=== PATIENT | female | born 1945 | race African-American/Black ===

== ENCOUNTER 2016-12-27 05:10 | Observation (INO) | payer OTHER ==
[2016-12-27] VITALS (8 sets, daily range): BP systolic 143–189; BP diastolic 70–90; PULSE 65–80; RESP 16–18; TEMP 97.3–97.8; O2SAT 95–100
[~2016-12-27] VITALS: Ht 154.9 cm; Wt 60.0 kg
[~2016-12-27 05:10] MED LIST: COZA50TA PO; HYDR-2768 PO; METF-324 PO; PYRI200T4 PO; ROSU40 PO; SITA100 PO; SULF1TAB47 PO
[2016-12-27] MEDS ORDERED: LANTUS2P SQ (05:32)
[2016-12-27] MEDS ORDERED: ATOR1TAB18 PO (05:32)
[2016-12-27] MEDS ORDERED: LOSA100T PO (05:32)
[2016-12-27] MEDS ORDERED: ZETI10TA5 PO (05:32)
[2016-12-27] MEDS ORDERED: METF1000 PO (05:32)
[2016-12-27] MEDS ORDERED: PROT40TA PO (05:32)
--- NOTE | 2016-12-27 05:54 | PD ---
HPI Chief Complaint: Chest Pain Time Seen by Provider: 05:32 Travel History International Travel<30 days: No Contact w/Intl Traveler<30days: No Traveled to known affect area: No History of Present Illness HPI The patient is a 71-year-old [place] female who presents emergency department for chest pain. The patient states she developed chest pain under left breast that radiates to the back yesterday while mowing her lawn. The patient's pain persisted while she was mowing the lawn, and improved after she sat down, after she stopped mowing. However, the pain returned this morning. The pain is located under the left breast, radiates to the back, slightly worse with inspiration, but is present at rest. She does complain of mild nausea and shortness of breath with her chest pain, but denies any vomiting. The patient does have a history of hypertension, hyperlipidemia, diabetes, and tobacco use. The patient quit smoking approximately one year ago. The patient thinks she had an outpatient stress test performed by Dr. Ryland Brown 2-3 years ago on an outpatient basis. The patient denies any known history of coronary artery disease. The patient's primary physician is Dr. Cook. PFSH Past Medical History Cardiovascular Problems: Yes (HTN) High Cholesterol: Yes Diabetes: Yes Patient Takes Glucophage: Yes (METFORMIN 12/26/16 1600 2000MG) Hypertension: Yes Pancreatitis: Yes (FAILURE) Tetanus Vaccination: > 5 Years Influenza Vaccination: Yes Past Surgical History Cholecystectomy: Yes Hysterectomy: Yes Social History Alcohol Use: Yes (OCC) Tobacco Use: No Substance Use: No Allergies-Medications (Allergen,Severity, Reaction): Coded Allergies: Tylenol/Codeine (Verified Allergy, Severe, Nausea/Vomiting, 12/27/16) Reported Meds & Prescriptions Reported Meds & Active Scripts Active Reported Lantus Inj (Insulin Glargine) 1,000 Unit/10 Ml Vial 30 Units SQ AC BREAKFAST Metformin (Metformin HCl) 1,000 Mg Tab 1,000 Mg PO BIDPC With meals Atorvastatin (Atorvastatin Calcium) 80 Mg Tab 80 Mg PO HS Protonix (Pantoprazole Sodium) 40 Mg Tab 40 Mg PO DAILY Zetia (Ezetimibe) 10 Mg Tab 10 Mg PO DAILY Losartan (Losartan Potassium) 100 Mg Tab 100 Mg PO DAILY Review of Systems Except as stated in HPI: all other systems reviewed are Neg HENT: No: Lightheadedness Cardiovascular: Positive: Chest Pain or Discomfort, Diaphoresis, Dyspnea on exertion Respiratory: Positive: Shortness of Breath Gastrointestinal: Positive: Nausea, No: Vomiting Musculoskeletal: No: Weakness, Edema Physical Exam Narrative GENERAL: Awake, alert, 71-year-old female who appears her stated age and is in no acute respiratory distress. SKIN: Warm and dry. HEAD: Atraumatic. Normocephalic. EYES: No injection or drainage. ENT: No nasal bleeding or discharge. Mucous membranes pink and moist. NECK: Trachea midline. No JVD. CARDIOVASCULAR: Regular rate and rhythm. No murmur appreciated. RESPIRATORY: No accessory muscle use. Clear to auscultation. Breath sounds equal bilaterally. GASTROINTESTINAL: Abdomen soft, non-tender, nondistended. No epigastric tenderness. No rebound tenderness. MUSCULOSKELETAL: No obvious deformities. No clubbing. No cyanosis. No edema. Calves are soft bilaterally. NEUROLOGICAL: Awake and alert. No obvious cranial nerve deficits. Motor grossly within normal limits. Normal speech. PSYCHIATRIC: Appropriate mood and affect; insight and judgment normal. Data Data Last Documented VS Vital Signs Date Time Temp Pulse Resp B/P Pulse Ox O2 Delivery O2 Flow Rate FiO2 12/27/16 06:22 16 12/27/16 06:01 68 181/83 100 Nasal Cannula 2 12/27/16 05:11 97.8 Orders Electrocardiogram (12/27/16 05:46) Ckmb (Isoenzyme) Profile (12/27/16 05:46) Complete Blood Count With Diff (12/27/16 05:46) Comprehensive Metabolic Panel (12/27/16 05:46) Magnesium (Mg) (12/27/16 05:46) Prothrombin Time / Inr (Pt) (12/27/16 05:46) Act Partial Throm Time (Ptt) (12/27/16 05:46) Troponin I (12/27/16 05:46) Chest, Single Ap (12/27/16 05:46) Ecg Monitoring (12/27/16 05:46) Bilateral Bp Monitoring (12/27/16 05:46) Iv Access Insert/Monitor (12/27/16 05:46) Oximetry (12/27/16 05:46) Oxygen Administration (12/27/16 05:46) Aspirin Chew (Aspirin Chew) (12/27/16 06:00) Morphine Inj (Morphine Inj) (12/27/16 06:00) Nitroglycerin 2% Oint (Nitroglycerin 2% (12/27/16 06:00) Sodium Chloride 0.9% Flush (Ns Flush) (12/27/16 06:00) Ondansetron Inj (Zofran Inj) (12/27/16 06:00) CKMB (12/27/16 05:50) CKMB% (12/27/16 05:50) Admit Order (Ed Use Only) (12/27/16 06:48) Activity Bed Rest With Brp (12/27/16 06:50) Vital Signs (Adult) Q4H (12/27/16 06:50) Cardiac Rhythm .As Directed (12/27/16 06:50) ^ Notify Dr: Other .PRN (12/27/16 06:50) ^ Notify Dr. Parameters (12/27/16 06:50) Resp Oxygen Nasal Cannula (12/27/16 ) Diet Npo (12/27/16 Breakfast) Ckmb (Isoenzyme) Profile (12/27/16 08:50) Ckmb (Isoenzyme) Profile (12/27/16 11:50) Troponin I (12/27/16 08:50) Troponin I (12/27/16 11:50) Electrocardiogram (12/27/16 08:50) Electrocardiogram (12/27/16 11:50) ^ Obtain (12/27/16 06:50) Sodium Chloride 0.9% Flush (Ns Flush) (12/27/16 07:00) Sodium Chloride 0.9% Flush (Ns Flush) (12/27/16 09:00) Acetaminophen (Tylenol) (12/27/16 07:00) Acetamin-Hydrocod 325-7.5 Mg (Joseph 7.5 (12/27/16 07:00) Morphine Inj (Morphine Inj) (12/27/16 07:00) Ondansetron Inj (Zofran Inj) (12/27/16 07:00) Nitroglycerin Sl (Nitrostat Sl) (12/27/16 07:00) Aspirin (Aspirin) (12/27/16 09:00) Applications Administrator / Telemetry DALILA.Q8H (12/27/16 06:50) Vte Prophylaxis Not Indicated (12/27/16 06:50) Labs Laboratory Tests Test 12/27/16 05:50 White Blood Count 6.2 TH/MM3 Red Blood Count 4.60 MIL/MM3 Hemoglobin 12.8 GM/DL Hematocrit 39.4 % Mean Corpuscular Volume 85.6 FL Mean Corpuscular Hemoglobin 27.8 PG Mean Corpuscular Hemoglobin 32.5 % Concent Red Cell Distribution Width 15.7 % Platelet Count 217 TH/MM3 Mean Platelet Volume 9.2 FL Neutrophils (%) (Auto) 43.7 % Lymphocytes (%) (Auto) 46.8 % Monocytes (%) (Auto) 6.9 % Eosinophils (%) (Auto) 1.6 % Basophils (%) (Auto) 1.0 % Neutrophils # (Auto) 2.7 TH/MM3 Lymphocytes # (Auto) 2.9 TH/MM3 Monocytes # (Auto) 0.4 TH/MM3 Eosinophils # (Auto) 0.1 TH/MM3 Basophils # (Auto) 0.1 TH/MM3 CBC Comment DIFF FINAL Differential Comment Prothrombin Time 10.0 SEC Prothromb Time International 0.9 RATIO Ratio Activated Partial 28.2 SEC Thromboplast Time Sodium Level 141 MEQ/L Potassium Level 3.5 MEQ/L Chloride Level 106 MEQ/L Carbon Dioxide Level 26.6 MEQ/L Anion Gap 8 MEQ/L Blood Urea Nitrogen 15 MG/DL Creatinine 0.99 MG/DL Estimat Glomerular Filtration 67 ML/MIN Rate Random Glucose 164 MG/DL Calcium Level 9.2 MG/DL Magnesium Level 1.7 MG/DL Total Bilirubin 0.6 MG/DL Aspartate Amino Transf 16 U/L (AST/SGOT) Alanine Aminotransferase 19 U/L (ALT/SGPT) Alkaline Phosphatase 102 U/L Total Creatine Kinase 186 U/L Troponin I LESS THAN 0.02 NG/ML Total Protein 8.2 GM/DL Albumin 3.9 GM/DL [facility] Medical Decision Making Medical Screen Exam Complete: Yes Emergency Medical Condition: Yes Medical Record Reviewed: Yes Interpretation(s) EKG reveals normal sinus rhythm with a rate of 70. Q wave noted in lead 3. [address] elevation noted in V2, not noted in V1 or V3. Chest x-ray reveals no acute disease Last Impressions Chest X-Ray 12/27/16 0546 Signed Impressions: Service Date/Time: Tuesday, December 27, 2016 05:58 - CONCLUSION: No acute disease. Carlos Demarco MD Laboratory Tests Test 12/27/16 05:50 White Blood Count 6.2 TH/MM3 Red Blood Count 4.60 MIL/MM3 Hemoglobin 12.8 GM/DL Hematocrit 39.4 % Mean Corpuscular Volume 85.6 FL Mean Corpuscular Hemoglobin 27.8 PG Mean Corpuscular Hemoglobin 32.5 % Concent Red Cell Distribution Width 15.7 % Platelet Count 217 TH/MM3 Mean Platelet Volume 9.2 FL Neutrophils (%) (Auto) 43.7 % Lymphocytes (%) (Auto) 46.8 % Monocytes (%) (Auto) 6.9 % Eosinophils (%) (Auto) 1.6 % Basophils (%) (Auto) 1.0 % Neutrophils # (Auto) 2.7 TH/MM3 Lymphocytes # (Auto) 2.9 TH/MM3 Monocytes # (Auto) 0.4 TH/MM3 Eosinophils # (Auto) 0.1 TH/MM3 Basophils # (Auto) 0.1 TH/MM3 CBC Comment DIFF FINAL Differential Comment Prothrombin Time 10.0 SEC Prothromb Time International 0.9 RATIO Ratio Activated Partial 28.2 SEC Thromboplast Time Sodium Level 141 MEQ/L Potassium Level 3.5 MEQ/L Chloride Level 106 MEQ/L Carbon Dioxide Level 26.6 MEQ/L Anion Gap 8 MEQ/L Blood Urea Nitrogen 15 MG/DL Creatinine 0.99 MG/DL Estimat Glomerular Filtration 67 ML/MIN Rate Random Glucose 164 MG/DL Calcium Level 9.2 MG/DL Magnesium Level 1.7 MG/DL Total Bilirubin 0.6 MG/DL Aspartate Amino Transf 16 U/L (AST/SGOT) Alanine Aminotransferase 19 U/L (ALT/SGPT) Alkaline Phosphatase 102 U/L Total Creatine Kinase 186 U/L Troponin I LESS THAN 0.02 NG/ML Total Protein 8.2 GM/DL Albumin 3.9 GM/DL Differential Diagnosis Differential diagnosis includes acute coronary syndrome, STEMI, pericarditis, myocarditis, pericardial effusion, pleural effusion, pulmonary embolism, costochondritis, pancreatitis. Narrative Course IV was established, labs are drawn and sent, and the patient was placed on cardiac telemetry monitoring and continuous pulse oximetry monitoring. EKG was ordered and interpreted. The patient was administered 2 baby aspirin, nitroglycerin paste, morphine, and Zofran. Chest x-ray was obtained. Chest x- ray was negative. The patient's initial troponin is negative. The patient will be 23 hour observation to the chest pain Center for serial cardiac enzymes and further evaluation by cardiology. The patient's blood pressure was elevated at 6:53 AM, 177/86, therefore, she was given her morning dose of losartan 100 mg orally. Physician Communication Physician Communication The patient will be 23 hour observation to the chest pain center for serial cardiac enzymes and further evaluation by cardiology. Diagnosis Primary Impression: Chest pain Qualified Code: R07.9 - Chest pain, unspecified type Admitting Information Admitting Physician Requests: Observation Condition: Stable Dequan Martinez MD Dec 27, 2016 05:54
[2016-12-27] MEDS ORDERED: ASPIRIN 81 MG CHEW TAB PO ONE (06:00)
[2016-12-27] MEDS ORDERED: MORPHINE SULFATE 4 MG/ML INJ IV PUSH ONE (06:00)
[2016-12-27] MEDS ORDERED: ONDANSETRON HCL 4 MG/2 ML VIAL IV PUSH ONE (06:00)
[2016-12-27] MEDS ORDERED: NITROGLYCERIN 2% OINT 1 GM PACKET TOP ONE (06:00)
[2016-12-27] MEDS ORDERED: SODIUM CHLORIDE 0.9% FLUSH 5 ML FLUSH IVF PRN ×2 (06:00→07:00)
[2016-12-27 06:13] LABS: AUTOMATED NEUTROPHIL # 2.7 TH/MM3 (1.8-7.7); BASOPHIL # 0.1 TH/MM3 (0-0.2); EOSINOPHIL # 0.1 TH/MM3 (0-0.4); EOSINOPHIL % 1.6 % (0.0-4.0); HEMATOCRIT 39.4 % (35.0-46.0); HEMO FLAGS DIFF FINAL; LYMPH % 46.8 % (9.0-44.0); LYMPHOCYTE # 2.9 TH/MM3 (1.0-4.8); MEAN CELL VOLUME 85.6 FL (80.0-100.0); MEAN CORPUSCULAR HEMOGLOBIN 27.8 PG (27.0-34.0); MEAN CORPUSCULAR HGB CONC 32.5 % (32.0-36.0); MONO % 6.9 % (0.0-8.0); NEUT % 43.7 % (16.0-70.0); PLATELET COUNT 217 TH/MM3 (150-450); RED CELL DISTRIBUTION WIDTH 15.7 % (11.6-17.2); WHITE BLOOD COUNT 6.2 TH/MM3 (4.0-11.0)
--- NOTE | 2016-12-27 06:33 | RADRPT ---
EXAM DATE/TIME: 12/27/2016 05:58 [facility] COMPARISON: No previous studies available for comparison. INDICATIONS : Chest pain. MEDICAL HISTORY : Diabetes mellitus type II. Hypercholesterolemia. Hypertension. SURGICAL HISTORY : None. ENCOUNTER: Initial ACUITY: 1 day PAIN SCORE: 6/10 LOCATION: Left chest FINDINGS: A single view of the chest demonstrates the lungs to be symmetrically aerated without evidence of mas s, infiltrate or effusion. The cardiomediastinal contours are unremarkable. Osseous structures are intact. CONCLUSION: No acute disease. Carlos Demarco MD on December 27, 2016 at 6:31 Board Certified Radiologist. This report was verified electronically.
[2016-12-27 06:39] LABS: ALT (GPT) 19 U/L (10-53); ANION GAP 8 MEQ/L (5-15); AST (GOT) 16 U/L (15-37); BICARBONATE 26.6 MEQ/L (21.0-32.0); BLOOD UREA NITROGEN 15 MG/DL (7-18); CHLORIDE 106 MEQ/L (98-107); GLOMERULAR FILTRATION RATE 67 ML/MIN (>89); MAGNESIUM 1.7 MG/DL (1.5-2.5); POTASSIUM 3.5 MEQ/L (3.5-5.1); SODIUM (NA) 141 MEQ/L (136-145)
[2016-12-27 06:43] LABS: ALKALINE PHOSPHATASE 102 U/L (45-117); CREATINE KINASE 186 U/L (26-192); TOTAL BILIRUBIN ADULT 0.6 MG/DL (0.2-1.0)
[2016-12-27 06:45] LABS: APTT (PATIENT) 28.2 SEC (24.3-30.1); INTERNATIONAL NORMALIZED RATIO 0.9 RATIO
[2016-12-27 06:55] LABS: CKMB 0.9 NG/ML (0.5-3.6)
[2016-12-27] MEDS ORDERED: LOSARTAN 50 MG TAB PO ONE (07:00)
[2016-12-27] MEDS ORDERED: MORPHINE SULFATE 4 MG/ML INJ IV PRN (07:00)
[2016-12-27] MEDS ORDERED: ACETAMINOPHEN 500 MG CPLT PO PRN (07:00)
[2016-12-27] MEDS ORDERED: ONDANSETRON HCL 4 MG/2 ML VIAL IV PRN (07:00)
[2016-12-27] MEDS ORDERED: ACETAMINOPHEN/HYDROcodone 325 MG/7.5 MG TAB PO PRN (07:00)
[2016-12-27] MEDS ORDERED: NITROGLYCERIN 0.4 MG SL 25 TABS/BTL SL PRN (07:00)
[2016-12-27] MEDS ORDERED: ASPIRIN 325 MG TAB PO SCH (09:00)
[2016-12-27] MEDS ORDERED: SODIUM CHLORIDE 0.9% FLUSH 5 ML FLUSH IVF SCH (09:00)
[2016-12-27 09:45] LABS: CREATINE KINASE 150 U/L (26-192)
[2016-12-27 09:57] LABS: CKMB 0.9 NG/ML (0.5-3.6)
--- NOTE | 2016-12-27 10:49 | HHI.HP ---
[facility] Primary Care Physician Dakota Magallanes MD Chief Complaint Chest pain History of Present Illness 71-year-old patient with known diabetes, hypertension, and hyperlipidemia who developed chest discomfort while mowing the lawn yesterday. Yesterday around 10 :30 AM she developed left shoulder, left anterior chest, pain under her left breast that radiated to her back described as "sharp, quick pain." She sat down to rest and pain "eased up some" never went completely away. She decided to continue to work outside. After completing her work, she decided to go to bed early. Continued to have discomfort before going to bed. At 3 AM, she woke up and noticed pain was still present, therefore she came to the ER after taking a shower. Severity 8/10, associated symptoms included taking deep breaths and certain movements. No nausea, shortness of breath, or diaphoresis. No known precipitating factors. Endorses 3 left sided rotator cuff repairs with mild discomfort daily. States rotator cuff injury has never been as severe as yesterday. Relieving factors include pain medication provided in ER. Continues to have chest discomfort, currently rated 6/10. No longer hurts to take a deep breath since receiving pain medication. Review of Systems General: No fatigue,weakness, fever, chills, recent illness, or change in appetite HEENT: No CANDELARIA, no vision changes, no nasal congestion or drainage, no dysphasia CV: Chest pain has improved, as stated above. No Palpitations, intermittent leg pain, or dizziness RESP: No SOB, cough, wheeze, or recent URI GI: No nausea, vomiting, bowel changes, diarrhea, constipation, pain, distention , melena, blood in the stool. 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 Past Surgical History Cholecystectomy, hysterectomy, 3 rotator cuff on left, rotator cuff 1 and right, bilateral knee surgeries, carpal tunnel, and frequent esophageal dilatations. Last dilatation September 2016. Reported Medications Reported Lantus Inj (Insulin Glargine) 1,000 Unit/10 Ml Vial 30 Units SQ AC BREAKFAST Metformin (Metformin HCl) 1,000 Mg Tab 1,000 Mg PO BIDPC With meals Atorvastatin (Atorvastatin Calcium) 80 Mg Tab 80 Mg PO HS Protonix (Pantoprazole Sodium) 40 Mg Tab 40 Mg PO DAILY Zetia (Ezetimibe) 10 Mg Tab 10 Mg PO DAILY Losartan (Losartan Potassium) 100 Mg Tab 100 Mg PO DAILY Zenpep 40,000 unit capsule TID Vitamin B12 by mouth daily CoQ10 by mouth daily Vitamin D3 5000 international units by mouth daily Active Ordered Medications Current Medications Medications (Trade) Dose Ordered Sig/Charles Route Start Time Stop Time Status Last Admin (Tylenol) 500 mg Q4H PRN PO 12/27/16 07:00 ([place] 7.5-325 Mg) 1 tab Q4H PRN PO 12/27/16 07:00 12/27/16 07:39 (Morphine Inj) 2 mg Q4H PRN IV 12/27/16 07:00 (Zofran Inj) 4 mg Q6H PRN IV 12/27/16 07:00 (Nitrostat Sl) 0.4 mg Q5M PRN SL 12/27/16 07:00 (Aspirin) 325 mg DAILY PO 12/27/16 09:00 12/27/16 09:02 Family History Noncontributory for any early onset cardiovascular disease Social History Quit smoking 1 year ago. Prior to that she smoked for 5 years, 1 pack every 2 weeks. Drinks alcohol occasionally, denies any illegal drug use. Has known hypertension, diabetes, and hyperlipidemia. She is active walking 2 miles daily and also attends [employer] multiple times weekly. Past cardiac testing No recent stress testing. Had routine treadmill stress test [address] Peter Pham, was unremarkable. Does not follow with a frame bander. Has never had cardiac catheterization. Physical Exam Vital Signs Vital Signs Date Time Temp Pulse Resp B/P Pulse Ox O2 Delivery O2 Flow Rate FiO2 12/27/16 10:03 71 12/27/16 09:23 97.3 73 16 143/70 95 12/27/16 08:45 65 17 162/80 99 Room Air 12/27/16 07:31 100 Nasal Cannula 2.00 12/27/16 07:31 77 18 164/90 100 Nasal Cannula 4 12/27/16 06:54 98 Nasal Cannula 2.00 12/27/16 06:22 16 12/27/16 06:01 68 16 181/83 100 Nasal Cannula 2 12/27/16 05:49 16 100 Room Air 12/27/16 05:49 100 Nasal Cannula 2 12/27/16 05:33 68 16 100 Room Air 12/27/16 05:11 97.8 80 16 189/90 99 Physical Exam GENERAL: Alert WN, WD, NAD, pleasant, female HEAD: NC, AT EYES: Sclera clear, conjunctiva without injection, pupils equal and round ENT: Mucous membranes pink and moist NECK: Supple, no masses, trachea midline CV: RRR, without murmur, rub, gallop, no JVD, S1-S2 no S3-S4. No carotid or femoral bruits RESP: Clear lungs throughout bilateral, no crackles, wheeze, rhonchi, symmetrical chest rise, nonlabored, able to speak in full sentences ABD: Soft, NT, ND, no masses, positive bowel tones BACK: No CVAT, Scoliosis noted EXT: Pulses +24, no dependent edema MS: Normal tone 4 extremities, nontender, no obvious deformities, full range of motion NEURO: CN II through CN XII grossly intact, motor strength 5/5, gait WNL PSYCH: A+O 3, pleasant affect, appropriate speech, appropriate mood and affect , insight and judgment SKIN: Normal turgor, normal texture, no lesions, no rashes, brisk cap refill Laboratory Laboratory Tests Test 12/27/16 12/27/16 05:50 08:50 White Blood Count 6.2 Red Blood Count 4.60 Hemoglobin 12.8 Hematocrit 39.4 Mean Corpuscular Volume 85.6 Mean Corpuscular Hemoglobin 27.8 Mean Corpuscular Hemoglobin 32.5 Concent Red Cell Distribution Width 15.7 Platelet Count 217 Mean Platelet Volume 9.2 Neutrophils (%) (Auto) 43.7 Lymphocytes (%) (Auto) 46.8 Monocytes (%) (Auto) 6.9 Eosinophils (%) (Auto) 1.6 Basophils (%) (Auto) 1.0 Neutrophils # (Auto) 2.7 Lymphocytes # (Auto) 2.9 Monocytes # (Auto) 0.4 Eosinophils # (Auto) 0.1 Basophils # (Auto) 0.1 CBC Comment DIFF FINAL Differential Comment Prothrombin Time 10.0 Prothromb Time International 0.9 Ratio Activated Partial 28.2 Thromboplast Time Sodium Level 141 Potassium Level 3.5 Chloride Level 106 Carbon Dioxide Level 26.6 Anion Gap 8 Blood Urea Nitrogen 15 Creatinine 0.99 Estimat Glomerular Filtration 67 Rate Random Glucose 164 Calcium Level 9.2 Magnesium Level 1.7 Total Bilirubin 0.6 Aspartate Amino Transf 16 (AST/SGOT) Alanine Aminotransferase 19 (ALT/SGPT) Alkaline Phosphatase 102 Total Creatine Kinase 186 150 Creatine Kinase MB 0.9 0.9 Troponin I LESS THAN 0.02 LESS THAN 0.02 Total Protein 8.2 Albumin 3.9 Result Diagram: 12/27/1650 12/27/1650 Imaging Last Impressions Chest X-Ray 12/27/16 0546 Signed Impressions: Service Date/Time: Tuesday, December 27, 2016 05:58 - CONCLUSION: No acute disease. Carlos Demarco MD Course EKGs 2 EKGs show normal sinus rhythm, normal axis, with no ST or T-segment changes Assessment and Plan Problem List: (1) Musculoskeletal chest pain (2) Hypertension (3) Type 2 diabetes mellitus Assessment and Plan #1 Chest painadmitted to chest pain center. Was ruled out with 2 sets of EKGs and cardiac enzymes. Was seen and evaluated by Dr. Brannon Churchill. Patient completed an exercise stress test which was unremarkable and no signs of ischemia. She will be discharged this afternoon. Patient is agreeable to this plan of care. #2 Hypertensioncontinue losartan 100 mg daily #3 Dyslipidemiacontinue atorvastatin and Zetia #4 Diabetescontinue metformin 1000 mg twice a day, hold Lantus at this time. #5 GERDcontinue Protonix 40 mg daily, follow with GI as previously discussed with them. #6 Musculoskeletal paininstructed to use warm heating pad to area as needed. May take Tylenol OTC as directed, unable to tolerate NSAIDs due to deficient pancreatic enzymes. Follow with primary M.D. if symptoms persist. Luz Mcrae Dec 27, 2016 10:49
[2016-12-27] MEDS ORDERED: LOSARTAN 50 MG TAB PO SCH (12:00)
[2016-12-27] MEDS ORDERED: metFORMIN HCL 500 MG TAB PO SCH (12:00)
[2016-12-27] MEDS ORDERED: PANTOPRAZOLE SOD 40 MG DELAYED RELEASE TAB PO SCH (12:00)
[2016-12-27] MEDS ORDERED: EZETIMIBE 10 MG TAB PO SCH (12:00)
--- NOTE | 2016-12-27 12:24 | HHI.DCPOC ---
Discharge Care Plan Diagnosis: (1) Musculoskeletal chest pain Goals to Promote Your Health * To prevent worsening of your condition and complications * To maintain your health at the optimal level Directions to Meet Your Goals Take your medications as prescribed Follow your dietary instruction Follow activity as directed Keep your appointments as scheduled Take your immunizations and boosters as scheduled If your symptoms worsen call your PCP, if no PCP go to Urgent Care Center or Emergency Room Smoking is Dangerous to Your Health. Avoid second hand smoke Call the 24-hour hour crisis hotline for domestic abuse at Luz Mcrae Dec 27, 2016 12:24
--- NOTE | 2016-12-27 14:30 | EKG ---
Date Performed: 12/27/2016 Time Performed: 09:12:25 PTAGE: 71 years EKG: Sinus rhythm NORMAL ECG PREVIOUS TRACING : 12/27/2016 05.35 No significant change from previous tracing noted. DOCTOR: Sukhdev Madsen Interpretating Date/Time 12/27/2016 14:30:06
--- NOTE | 2016-12-27 14:34 | EKG ---
Date Performed: 12/27/2016 Time Performed: 05:35:13 PTAGE: 71 years EKG: Sinus rhythm NORMAL ECG PREVIOUS TRACING : 09/08/2003 21.22 No significant change from previous tracing noted. DOCTOR: Sukhdev Madsen Interpretating Date/Time 12/27/2016 14:32:37
--- NOTE | 2016-12-28 15:30 | TR ---
Date Performed: 12/27/2016 Time Performed: 11:56:19 DOCTOR: Brannon Churchill DRUG LIST: CLINICAL HISTORY: REASON FOR TEST: REASON FOR ENDING: OBSERVATION: CONCLUSION: Jeancarlos protocol completed. Stopped sec to exceeding target heart rate and leg fatigue . Maximum CG=136 Target HR Achieved=96.0% Maximum XL=682/72 Total Exercise Time=7:01. No reprod chest discomfort. No ectopy. No st t segments changes to sugg ischemia. Normal bp response. Good exercise tolerance. Recovery quick and unremarkable. COMMENTS: Conclusion: Normal treadmill exercise. No evidence of ischemia.
== END 2016-12-27 13:44 | disposition home or self-care (01) ==
LOC: NEPE 05:10 → NEDA 06:51 → NEPGCP 09:16
PROVIDERS: ADMIT Internal Medicine Interventional Cardiology; ATTEND Internal Medicine Interventional Cardiology
DX: R07.89 Other chest pain (principal); R11.0 Nausea; R06.02 Shortness of breath; I10 Essential (primary) hypertension; E78.5 Hyperlipidemia, unspecified; E11.9 Type 2 diabetes mellitus without complications; Z87.891 Personal history of nicotine dependence; E78.00 Pure hypercholesterolemia, unspecified; K85.90 Acute pancreatitis without necrosis or infection, unspecified; Z79.899 Other long term (current) drug therapy; Z79.4 Long term (current) use of insulin; K22.70 Barrett's esophagus without dysplasia; K21.9 Gastro-esophageal reflux disease without esophagitis; M79.1 Myalgia
CPT/HCPCS: 71010; 80053; 82550; 82552; 83735; 84484; 85025; 85610; 85730; 93005; 93017; 96374; 96375; 99285; G0378; J2270; J2405

== ENCOUNTER 2017-04-02 11:02 | Emergency (ER) | payer OTHER ==
[~2017-04-02] VITALS: Ht 154.9 cm; Wt 60.0 kg
[2017-04-02 11:02] VITALS: BP 146/79; PULSE 91
[~2017-04-02 11:02] MED LIST changes: +ATOR1TAB18 PO; -COZA50TA PO; -HYDR-2768 PO; +LANTUS2P SQ; +LOSA100T PO; -METF-324 PO; +METF1000 PO; +PROT40TA PO; -PYRI200T4 PO; -ROSU40 PO; -SITA100 PO; -SULF1TAB47 PO; +ZETI10TA5 PO
[2017-04-02 11:03] VITALS: BP 179/86; PULSE 87; RESP 15; TEMP 98.6; O2SAT 99
--- NOTE | 2017-04-02 11:16 | PD ---
Physical Exam Time Seen by Provider: 11:10 Narrative 71yo F c/o chest tightness, SOB and cough x 3weeks. PCP recommended her to come for evaluation. +fatigue. Denies hemoptysis, fever. Took oral steroids w/ no relief of symptoms. Patient seen in triage. VS reviewed. Patient awaiting bed placement. Data Data Last Documented VS Vital Signs Date Time Temp Pulse Resp B/P Pulse Ox O2 Delivery O2 Flow Rate FiO2 04/02/17 11:03 98.6 87 15 179/86 99 MDM Supervised Visit with HAYDEE: Carol Sanabria Apr 02, 2017 11:16
--- NOTE | 2017-04-02 11:50 | PD ---
HPI Chief Complaint: Cold / Flu Symptoms Time Seen by Provider: 11:47 Travel History International Travel<30 days: No Contact w/Intl Traveler<30days: No Traveled to known affect area: No History of Present Illness HPI Patient comes in complaining of cough ongoing for 3 weeks. Cough is occasionally productive with clear sputum. Patient denies any fevers, chest pain, shortness breath, nausea, vomiting, sore throat, headache, numbness or tingling anywhere, abdominal pain, loss or change in bowel or bladder, or anything making it better. Patient was on 3 days worth of prednisone last week that showed no improvement of her symptoms. Patient states she feels that she is wheezing at night. Patient is a reformed for smoker approximately one year. Patient denies any known history of respiratory issues. Patient denies any known sick contacts. Patient is a diabetic reports her blood sugars been running 140-160. PFSH Past Medical History Heart Rhythm Problems: No Cardiac Catheterization: No Cardiovascular Problems: Yes High Cholesterol: Yes Congestive Heart Failure: Yes Diabetes: Yes Patient Takes Glucophage: Yes Hypertension: Yes Pancreatitis: Yes (FAILURE) Influenza Vaccination: Yes ?: Not Past Surgical History Cholecystectomy: Yes Coronary Artery Bypass Graft: No Hysterectomy: Yes Social History Alcohol Use: Yes (OCC) Tobacco Use: No Substance Use: No Allergies-Medications (Allergen,Severity, Reaction): Coded Allergies: Codeine (Verified Allergy, Mild, "UPSET STOMACH", 04/02/17) Reported Meds & Prescriptions Reported Meds & Active Scripts Active Zithromax Z-Felix (Azithromycin) 250 Mg Dspk 250 Mg PO DIRECTED 500 MG (2 tabs) day 1, then 1 tab days 2-5. Ventolin Hfa 18 GM Inh (Albuterol Sulfate) 90 Mcg/Act Aer 2 Puff INH Q4-6H PRN Reported Lantus Inj (Insulin Glargine) 1,000 Unit/10 Ml Vial 30 Units SQ AC BREAKFAST Metformin (Metformin HCl) 1,000 Mg Tab 1,000 Mg PO BIDPC With meals Atorvastatin (Atorvastatin Calcium) 80 Mg Tab 80 Mg PO HS Protonix (Pantoprazole Sodium) 40 Mg Tab 40 Mg PO DAILY Zetia (Ezetimibe) 10 Mg Tab 10 Mg PO DAILY Losartan (Losartan Potassium) 100 Mg Tab 100 Mg PO DAILY Review of Systems Except as stated in HPI: all other systems reviewed are Neg Physical Exam Narrative GENERAL: Well-developed, well nourished, in no acute distress, and non-ill appearing. SKIN: Focused skin assessment warm and dry. HEAD: Atraumatic. Normocephalic. EYES: Pupils equal and round. EOMI. No scleral icterus. No injection or drainage. ENT: No nasal bleeding or discharge. Mucous membranes pink and moist. Tympanic membranes pearly jacobson bilaterally. Posterior pharynx erythematous without exudate. Uvula is midline. No tenderness to facial sinuses to palpation. NECK: Trachea midline. No cervical lymphadenopathy. Supple. No nuclear rigidity. CARDIOVASCULAR: Regular rate and rhythm. No murmur appreciated. RESPIRATORY: No accessory muscle use. No respiratory distress. Scant expiratory wheezes noted throughout. Breath sounds equal bilaterally. MUSCULOSKELETAL: No obvious deformities. No clubbing. No cyanosis. No edema. Full range of motion. NEUROLOGICAL: Awake and alert. No obvious cranial nerve deficits. Motor grossly within normal limits. Normal speech. PSYCHIATRIC: Appropriate mood and affect; insight and judgment normal. Data Data Last Documented VS Vital Signs Date Time Temp Pulse Resp B/P Pulse Ox O2 Delivery O2 Flow Rate FiO2 04/02/17 11:03 98.6 87 15 179/86 99 Orders Albuterol-Ipratropium Neb (Duoneb Neb) (04/02/17 12:00) Resp Mdi/Instruction (04/02/17 11:47) Chest, Single Ap (04/02/17 ) [facility] Medical Decision Making Medical Screen Exam Complete: Yes Emergency Medical Condition: Yes Interpretation(s) Chest x-ray reviewed by the radiologist shows: 1. Mild hyperexpansion which may reflect some degree of obstructive bony disease. 2. Otherwise, no acute cardiopulmonary disease. Differential Diagnosis Pneumonia, bronchitis, upper respiratory infection, CHF exacerbation, other Narrative Course Patients symptom complex is consistent with bronchitis. The patient is non-ill appearing and is in no respiratory distress and comfortable. The patient moves air well and oxygen saturations are normal. Chest x-ray revealed no evidence of obvious consolidation of infiltrate. She reports improvement of symptoms status post nebulizer treatment. There is no clinical evidence to suggest pneumonia at this time. Plan of care and management were discussed with the patient who agreed with plan. The patient was instructed to follow up with their physician and instructed to return if worsens, progressively worsening shortness of breath or difficulty breathing, persistent fever, chest pains or discomfort, inability to keep medication or fluids down with or without vomiting , or as needed. Patient in no obvious distress upon re-evaluation. All pertinent Radiology result(s) discussed with patient and was given a copy of chest x-ray report. Discussed patient with Dr. Don prior to discharge, who was in agreement with plan of care and disposition. Patient was asked if they wanted to speak to my attending, which the patient did not wish to do at this time. Any questions/ concerns in reference to patient diagnosis/condition discussed and clarified prior to patient's discharge. Reinforced sheer importance of close follow up with patient's primary physician or primary care clinic. Instructed patient to return to ED immediately, if symptoms return/worsen. Pt showed understanding of above instructions. Further instructions and recommendations were detailed in discharge paperwork. Pt ambulated without difficulty out of ED at discharge. Diagnosis Primary Impression: Bronchitis Patient Instructions: Acute Bronchitis (ED), General Instructions Additional Instructions: Follow-up with your primary care physician next week for reevaluation for further evaluation of incidental findings noted on chest x-ray. Take all medication as prescribed. Return to the emergency department if symptoms get worse. Med/Other Pt SpecificInfo: Prescription(s) given Scripts Azithromycin (Zithromax Z-Felix)250 Mg [id number] Mg PO DIRECTED #1 DSPK Ref 0 500 MG (2 tabs) day 1, then 1 tab days 2-5. Prov:Alisia Don MD 04/02/17 Albuterol 18 GM Inh (Ventolin Hfa 18 GM Inh)90 Mcg/Act Aer2 Puff INH Q4-6H PRN ( COUGH) #1 INHALER Ref 0 Prov:Alisia Don MD 04/02/17 Disposition: 01 DISCHARGE HOME Condition: Stable Owen Jade Apr 02, 2017 11:50
[2017-04-02] MEDS ORDERED: RESP: ALBUTEROL 2.5 MG/IPRATROPIUM 0.5 MG NEB (SCH) INH ONE (12:00)
--- NOTE | 2017-04-02 12:19 | RADRPT ---
EXAM DATE/TIME: 04/02/2017 11:54 [facility] COMPARISON: CHEST SINGLE AP, December 27, 2016, 5:58. INDICATIONS : Short of breath. MEDICAL HISTORY : None. SURGICAL HISTORY : None. ENCOUNTER: Initial ACUITY: 3 days PAIN SCORE: 0/10 LOCATION: Bilateral upper chest FINDINGS: Lungs are mildly hyperexpanded but are otherwise clear. Cardiac silhouette is at the upper limits of normal for size given degree of hyperexpansion. Bony thorax is intact. CONCLUSION: 1. Mild hyperexpansion which may reflect some degree of obstructive bony disease. 2. Otherwise, no acute cardiopulmonary disease. Jerry Garces MD on April 02, 2017 at 12:16 Board Certified Radiologist. This report was verified electronically.
[2017-04-02] MEDS ORDERED: VENTAER INH (12:35)
[2017-04-02] MEDS ORDERED: ZITHTAB PO (12:35)
== END 2017-04-02 12:57 | disposition home or self-care (01) ==
LOC: NEPD 11:02
DX: J40 Bronchitis, not specified as acute or chronic (principal); E78.00 Pure hypercholesterolemia, unspecified; E11.9 Type 2 diabetes mellitus without complications; I50.9 Heart failure, unspecified; I10 Essential (primary) hypertension; K85.90 Acute pancreatitis without necrosis or infection, unspecified; Z79.84 Long term (current) use of oral hypoglycemic drugs
CPT/HCPCS: 71010; 94664; 99284

== ENCOUNTER 2018-02-26 17:26 | Emergency (ER) | payer OTHER ==
[~2018-02-26] VITALS: Ht 160 cm; Wt 60.0 kg
[~2018-02-26 17:26] MED LIST changes: -ATOR1TAB18 PO; +ATOR80TA45 PO; +EZET10 PO; +VENTAER INH; -ZETI10TA5 PO; +ZITHTAB PO
[2018-02-26 17:52] VITALS: BP 168/81; PULSE 77; RESP 18; TEMP 98.3; O2SAT 98
[2018-02-26] MEDS ORDERED: TRAM50 PO (23:19)
== END 2018-02-26 21:10 | disposition left against medical advice (07) ==
LOC: NED 17:26
DX: M79.646 Pain in unspecified finger(s) (principal)
CPT/HCPCS: 99281

== ENCOUNTER 2018-02-26 21:38 | Emergency (ER) | payer OTHER ==
[~2018-02-26] VITALS: Ht 154.9 cm; Wt 59.6 kg
[2018-02-26 21:44] VITALS: BP 194/108; PULSE 75; RESP 18; TEMP 97.5; O2SAT 99
--- NOTE | 2018-02-26 22:06 | PD ---
HPI Chief Complaint: Pain: Acute or Chronic Time Seen by Provider: 21:50 Travel History International Travel<30 days: No Contact w/Intl Traveler<30days: No Traveled to known affect area: No History of Present Illness HPI Patient states that she has had 4 days worth of increasing pain to her left thumb area. 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 Patient states that she has no history of gout , no history of major arthritis or anything. But she does have increased pain with movement/activity, 5 out of 10, sharp, patient denies any recent traumatic event. Pain is alleviated with ice, aggravated by movement. Allergy to codeine Past medical history significant for CHF hypercholesterolemia hypertension pancreatitis cholecystectomy hysterectomy diabetes PFSH Past Medical History Heart Rhythm Problems: No Cardiac Catheterization: No Cardiovascular Problems: Yes High Cholesterol: Yes Congestive Heart Failure: Yes Diabetes: Yes Hypertension: Yes Pancreatitis: Yes (FAILURE) LMP: menopause Past Surgical History Cholecystectomy: Yes Coronary Artery Bypass Graft: No Hysterectomy: Yes Social History Alcohol Use: Yes (OCC) Tobacco Use: No Substance Use: No Allergies-Medications (Allergen,Severity, Reaction): Coded Allergies: codeine (Unverified Allergy, Mild, "UPSET STOMACH", 06/16/17) Reported Meds & Prescriptions Reported Meds & Active Scripts Active Zithromax Z-Felix (Azithromycin) 250 Mg Dspk 250 Mg PO DIRECTED 500 MG (2 tabs) day 1, then 1 tab days 2-5. Ventolin Hfa 18 GM Inh (Albuterol Sulfate) 90 Mcg/Act Aer 2 Puff INH Q4-6H PRN Reported Lantus Inj (Insulin Glargine) 1,000 Unit/10 Ml Vial 30 Units SQ AC BREAKFAST Metformin (Metformin HCl) 1,000 Mg Tab 1,000 Mg PO BIDPC With meals Atorvastatin (Atorvastatin Calcium) 80 Mg Tab 80 Mg PO HS Protonix (Pantoprazole Sodium) 40 Mg Tab 40 Mg PO DAILY Zetia (Ezetimibe) 10 Mg Tab 10 Mg PO DAILY Losartan (Losartan Potassium) 100 Mg Tab 100 Mg PO DAILY Review of Systems General / Constitutional: No: Fever Eyes: No: Visual changes HENT: No: Headaches Cardiovascular: No: Chest Pain or Discomfort Respiratory: No: Shortness of Breath Gastrointestinal: No: Abdominal Pain Genitourinary: No: Dysuria Musculoskeletal: Positive: Pain (Left thumb) Skin: No Rash Neurologic: No: Weakness Psychiatric: No: Depression Endocrine: No: Polydipsia Hematologic/Lymphatic: No: Easy Bruising Physical Exam Narrative GENERAL: SKIN: Warm and dry. HEAD: Atraumatic. Normocephalic. EYES: Pupils equal and round. No scleral icterus. No injection or drainage. ENT: No nasal bleeding or discharge. Mucous membranes pink and moist. NECK: Trachea midline. No JVD. CARDIOVASCULAR: Regular rate and rhythm. RESPIRATORY: No accessory muscle use. Clear to auscultation. Breath sounds equal bilaterally. GASTROINTESTINAL: Abdomen soft, non-tender, nondistended. MUSCULOSKELETAL: Extremities without clubbing, cyanosis, or edema. No obvious deformities. There is no obvious edema to her left thumb. However she does have some snuffbox tenderness as well as tenderness over her tendons leading to her thumb. Patient is able to abduct thumb to pinky thumb to ring sit thumb to other digits. However is most painful when she tries to give a thumbs up sign NEUROLOGICAL: Awake and alert. No obvious cranial nerve deficits. Motor grossly within normal limits. Five out of 5 muscle strength in the arms and legs. Normal speech. PSYCHIATRIC: Appropriate mood and affect; insight and judgment normal. Data Data Last Documented VS Vital Signs Date Time Temp Pulse Resp B/P (MAP) Pulse Ox O2 Delivery O2 Flow Rate FiO2 02/26/18 21:44 97.5 75 18 194/108 (136) 99 Orders Orders Hand, Complete ([id number]) (02/26/18 21:56) Ketorolac Inj (Toradol Inj) (02/26/18 22:15) [facility] Medical Decision Making Medical Screen Exam Complete: Yes Emergency Medical Condition: Yes Medical Record Reviewed: Yes Differential Diagnosis Fracture versus dislocation versus tendinitis Narrative Course X-ray does not show any evidence of fracture, dislocation x-rays area however it does show osteoarthritis of the first carpometacarpal joint Diagnosis Primary Impression: Left Abductor pollicis tendinitis Additional Impression: Osteoarthritis Patient Instructions: General Instructions, Osteoarthritis (DC), Tendinitis (ED ) Scripts Tramadol (Ultram) 50 Mg Tab 50 MG PO Q8H Y for PAIN, #10 TAB 0 Refills Prov: George Polo MD 02/26/18 Disposition: 01 DISCHARGE HOME Condition: Stable George Polo MD Feb 26, 2018 22:06
[2018-02-26] MEDS ORDERED: KETOROLAC TROMETHAMINE 60 MG/2 ML (IM) VIAL IM ONE (22:15)
--- NOTE | 2018-02-26 22:16 | RADRPT ---
EXAM DATE/TIME: 02/26/2018 22:04 [facility] COMPARISON: No previous studies available for comparison. INDICATIONS : Left hand, first digit pain. No known injury. MEDICAL HISTORY : Carpal tunnel SURGICAL HISTORY : None. ENCOUNTER: Initial ACUITY: 3 days PAIN SCORE: 8/10 LOCATION: Left upper extremity FINDINGS: No fracture or subluxation of the left thumb. There is mild first metacarpophalangeal osteoarthritis. Radiographic appearance of the soft tissues within normal limits. CONCLUSION: Minimal degenerative changes. No fracture or subluxation. Carl Worthy MD on February 26, 2018 at 22:12 Board Certified Radiologist. This report was verified electronically.
[2018-02-26] MEDS ORDERED: TRAM50 PO (23:19)
[2018-02-27 01:18] VITALS: BP 190/98; TEMP 98.2
== END 2018-02-27 01:20 | disposition home or self-care (01) ==
LOC: PHED 21:38
DX: M77.9 Enthesopathy, unspecified (principal); M18.9 Osteoarthritis of first carpometacarpal joint, unspecified; E11.9 Type 2 diabetes mellitus without complications; E78.00 Pure hypercholesterolemia, unspecified; I11.0 Hypertensive heart disease with heart failure; I50.9 Heart failure, unspecified
CPT/HCPCS: 73130; 96372; 99283; J1885; L3808